=== PATIENT | female | born 1995 | race Caucasian/White ===

== ENCOUNTER 2017-10-19 12:21 | Emergency (ER) | payer SELFPAY ==
[2017-10-19 13:13] VITALS: BP 101/33
== END 2017-10-19 16:00 | disposition left against medical advice (07) ==
LOC: ED 12:21
DX: L02.415 Cutaneous abscess of right lower limb (principal); Z53.21 Procedure and treatment not carried out due to patient leaving prior to being seen by health care provider

== ENCOUNTER 2017-10-21 03:36 | Emergency (ER) | payer SELFPAY ==
[2017-10-21 04:13] VITALS: BP 117/69
[2017-10-21] MEDS ORDERED: TYLENOL ONE (04:16)
[2017-10-21] MEDS ORDERED: TYLENOL PO ONE (04:18)
== END 2017-10-21 10:40 | disposition left against medical advice (07) ==
LOC: ED 03:36
DX: L02.91 Cutaneous abscess, unspecified (principal); Z53.21 Procedure and treatment not carried out due to patient leaving prior to being seen by health care provider